=== PATIENT | female | born 1985 | race African-American/Black ===

== ENCOUNTER 2021-06-17 06:50 | Emergency (ER) | payer BC | END 2021-06-17 07:38 | disposition left against medical advice (07) | LOC: VM.ED 06:50 | DX: G89.18 Other acute postprocedural pain (principal); M79.661 Pain in right lower leg; M79.602 Pain in left arm; R07.89 Other chest pain; Z88.8 Allergy status to other drugs, medicaments and biological substances; Z88.6 Allergy status to analgesic agent; Z88.5 Allergy status to narcotic agent | CPT/HCPCS: 99284 ==

== ENCOUNTER 2021-06-23 06:31 | Emergency (ER) | payer BC ==
[2021-06-23] MEDS: Orphenadrine 60 MG/2 ML Inj IM ONE (07:25)
== END 2021-06-23 09:25 | disposition home or self-care (01) ==
LOC: VM.ED 06:31
DX: G89.18 Other acute postprocedural pain (principal); M25.512 Pain in left shoulder; Z88.5 Allergy status to narcotic agent; Z88.6 Allergy status to analgesic agent; Z88.8 Allergy status to other drugs, medicaments and biological substances
CPT/HCPCS: 73030-LT; 96372; 99283; 99283-25; J2360